=== PATIENT | male | born 1945 | race Caucasian/White ===

== ENCOUNTER → 2023-08-04 | Outpatient (CLI) | payer OTHER, SELFPAY ==
--- NOTE | 2023-08-04 08:23 | ECHOD_ITS ---
Reason For Study: Ischemic CMP Procedure This was a 2D Doppler, Color Flow transthoracic echocardiogram. The study was technically difficult. Exam performed in department. Left Ventricle Normal LV size. Moderate concentric left ventricular hypertrophy. Left ventricular systolic function is normal. The estimated ejection fraction is 55 %. No regional wall motion abnormalities noted. Right Ventricle Normal RV size. Normal systolic function. Atria The left atrium is severely enlarged. The right atrium is mildly enlarged. Mitral Valve Normal mitral valve. Mild (1+) eccentric mitral valve insufficiency. Tricuspid Valve Normal tricuspid valve. Mild (1+) tricuspid valve insufficiency. Pulmonary artery systolic pressure is 43 mmHg. Aortic Valve Trisinus/trileaflet aortic valve. Great Vessels Mildly dilated aortic root. The pulmonary artery is normal size. Normal inferior vena cava. Pericardium/Pleural No pericardial effusion. MMode/2D Measurements & Calculations LVIDd: 4.9 cm IVSd: 1.5 cm Ao root diam: 3.9 cm LVIDs: 3.3 cm LVPWd: 1.4 cm LA dimension: 5.4 cm RVDd: 4.1 cm FS: 31.7 % LAV(MOD-bp): 145.4 ml LA A4 area: 35.1 cm2 RA A4 area: 23.8 cm2 LAV(MOD-bp) Indexed: 66.2 ml/m2 LAV(MOD-sp2): 152.0 ml LAV(MOD-sp4): 139.2 ml Doppler Measurements & Calculations MV E max felix: 94.0 cm/sec MV V2 max: 106.5 cm/sec Ao V2 max: 75.1 cm/sec MV max P.5 mmHg Ao max P.3 mmHg MV V2 mean: 53.2 cm/sec Ao V2 mean: 56.6 cm/sec MV mean P.4 mmHg Ao mean P.4 mmHg MV V2 VTI: 22.0 cm Ao V2 VTI: 15.7 cm AV (velocity ratio): 0.75 LV V1 max: 57.1 cm/sec PA V2 max: 63.4 cm/sec LV V1 max P.3 mmHg PI dec slope: 234.1 cm/sec2 LV V1 mean P.73 mmHg LV V1 mean: 40.3 cm/sec LV V1 VTI: 11.8 cm TR max felix: 315.1 cm/sec TR max P.7 mmHg ECHO/Echo Complete Interpretation Summary Normal LV size. Moderate concentric left ventricular hypertrophy. Left ventricular systolic function is normal. The estimated ejection fraction is 55 %. Mildly dilated aortic root. Pulmonary artery systolic pressure is 43 mmHg. Ordering Physician: Liam Vinson Referring Physician: Liam Vinson Performed By: Mario Chacon RCS
== END | disposition home or self-care (01) ==
LOC: CVS 08:22
PROVIDERS: Referring Provider Chiropractor; Visit Provider Chiropractor
DX: I25.9 Chronic ischemic heart disease, unspecified (principal); I51.7 Cardiomegaly
CPT/HCPCS: 93005; 93306